=== PATIENT | female | born 1965 | race Caucasian/White ===

== ENCOUNTER → 2017-05-18 08:30 | Outpatient (CLI) | payer OTHER, SELFPAY ==
[2017-05-18 10:43] LABS: ALB/GLOB Ratio 0.7 RATIO (0.9-2.4); AST(SGOT) 33 U/L (15-37); Alanine Aminotransfer ALT/SGPT 56 U/L (13-56); Albumin, Serum 3.4 g/dL (3.2-5.0); Alkaline Phosphatase 91 U/L (45-117); Anion Gap 9 (5-15); BUN 11 mg/dL (7-18); BUN/Creat Ratio 19.4 RATIO (10-20); Calcium,Total 8.5 mg/dL (8.5-10.1); Chloride 101 mmol/L (98-107); Cholesterol 212 mg/dL (200); Creatinine, Serum 0.57 mg/dL (0.55-1.02); EST Glomerular Filtration Rate 118 mL/min (>60); Est Glom Filt Rate - Afr Amer 143 mL/min (>60); Globulin 4.7 g/dL (2.2-4.2); Glucose 149 mg/dL (74-106); High Density Lipoprotein 50 mg/dL; Potassium 3.7 mmol/L (3.5-5.1); Protein, Total 8.1 g/dL (6.4-8.2); Sodium Level 137 mmol/L (136-145); Triglycerides 105 mg/dL; Very Low Density Lipoprotein 21 mg/dL (5-40)
== END ==
PROVIDERS: Family Provider Family Medicine; PCP Family Medicine; Visit Provider Family Medicine
DX: E11.9 Type 2 diabetes mellitus without complications (principal); Z13.21 Encounter for screening for nutritional disorder
CPT/HCPCS: 36415; 80053; 80061; 82306; 84443

== ENCOUNTER 2017-05-20 17:41 | Emergency (ER) | payer OTHER, SELFPAY ==
[2017-05-20 17:41] VITALS: BP 205/98; PULSE 86; RESP 24; TEMP 36.9; O2SAT 100; BMI 41.4
--- NOTE | 2017-05-20 18:09 | CT_ITS ---
STUDY: CT ABDOMEN AND PELVIS WITHOUT CONTRAST REASON FOR EXAM: Female, 51 years old. Left flank pain RADIATION DOSAGE (If Supplied By Facility): CTDIvol = ( 21.85 ) mGy, DLP = ( 1124.68 ) mGycm TECHNIQUE: Transaxial images were obtained from the dome of the diaphragm to the symphysis pubis without oral contrast, and without intravenous contrast. Sagittal and coronal images were reconstructed. Individualized dose optimization techniques were used for this CT. COMPARISON: 617 FINDINGS: The visualized lung bases are clear. The visualized portions of the heart and pericardium are within normal limits. Evaluation of the abdominal viscera is limited in the absence of intravenous contrast. The patient is status post cholecystectomy. The liver is low in density, consistent with fatty infiltration. The spleen is normal in size. The pancreas demonstrates an unremarkable unenhanced appearance. The adrenal glands are within normal limits. There are no urinary stones. There is no right hydronephrosis. There is mild left hydroureteronephrosis with no cause identified on this study. Normal visualized stomach. There is no bowel obstruction or inflammation. There is a large amount of stool in the colon, consistent with constipation. The appendix is not visualized, but there are no findings to suggest acute appendicitis. The aorta is normal in caliber. There is no abdominal or pelvic free air, free fluid, fluid collection or lymphadenopathy. There are no destructive osseous lesions. CT/Abdomen/Pelvis without Cont IMPRESSION: Mild left hydroureteronephrosis with no cause identified on this study. This may be due to a recently passed stone or may be due to infection. Clinical correlation is recommended. No bowel obstruction or inflammation. Constipation. Fatty liver. Electronically Signed: Ivan Mullins, at 19:42 EST Tel , Service support ,
--- NOTE | 2017-05-20 18:14 | ED.DCSUM_ITS ---
- ER Visit Summary Date of Service: 05/20/17 Chief Complaint: Flank pain History of Present Illness: The patient is a 51 F with left flank pain that woke her up at 1 AM this morning. Pain was persistent until about 4 a.m. She has been having intermittent waxing and waning pain throughout the day. She did have some nausea and vomiting this morning when the pain was very severe. She denies dysuria. Patient has a history of asthma, diabetes, hypertension, pancreatitis, fibromyalgia. Cholecystectomy was performed years ago. She also had a hernia repair. Physical Examination: Vital signs are significant for blood pressure of 205/98, otherwise unremarkable. Head neck examination is normal. Heart is regular rate and rhythm. Lung sounds are clear. Abdomen is soft with upper abdominal tenderness. Is no guarding or rebound. Hypoactive bowel sounds are noted throughout. Back examination does reveal left CVA tenderness. Test Results: CBC is unremarkable. Chemistry studies reveal potassium of 3.4 glucose of 188. Urinalysis does show 250 of blood on macroscopic examination. No evidence of infection. CT flank reveals mild left hydroureteronephrosis with no cause identified on the scan. This may be due to recently passed stone or to infection. No evidence of bowel obstruction. Emergency Department Course and Treatment: Patient was given morphine, Toradol, Zofran, and IV fluids. On repeat evaluation she is resting comfortably and is improved. Patient has hydrocodone at home that she will take if pain worsens. I suspect she may have some remaining spasm, but pain should be significantly improved over the next 24 hours. Treatment Plan: [] Disposition: Discharge Impression: Left flank pain with recently passed kidney stone This note was generated with [employer] dictation software. It may contain incorrect words, spelling, and punctuation that were not noted in review of the chart prior to signing ED Disposition - Plan for ED Patient: Chief Complaint: Flank Pain Referrals: Presley Gonzales MD [Primary Care Provider] -
[2017-05-20 18:20] LABS: Absolute Lymphocyte Count 4.14 X10^3/ul (0.83-4.51); Absolute Neutrophil Count 5.9 X10^3/uL (2.0-7.7); Basophil# 0.04 X10^3/uL; Basophil% 0.4 % (0-1); Eosinophil# 0.24 X10^3/uL; Eosinophils% 2.2 % (0-5); Hematocrit 46.7 % (37-47); Hemoglobin 14.9 g/dl (12.0-15.0); Lymphocyte # 4.14 X10^3/ul (4.0); Lymphocyte % 38.1 % (19-41); Mean Corp Hgb Conc 31.9 g/gl (32-36); Mean Corpuscular Hgb 25.4 pg (27.0-32.0); Mean Corpuscular Volume 79.7 fL (81-99); Mean Platelet Vol. 9.7 fl (6.2-12.0); Monocyte# 0.53 X10^3/uL; Monocyte% 4.9 % (0-10); Neutrophil % 54.2 % (47-70); POSITIVE COUNT NO; POSITIVE DIFFERENTIAL NO; POSITIVE MORPHOLOGY NO; Platelet Count 313 K/mm3 (150-450); RBC Distribution Width CV 14.5 % (11.6-14.6); Red Blood Count 5.86 M/mm3 (4.2-5.4); White Blood Count 10.9 K/mm3 (4.4-11.0)
[2017-05-20] MEDS: Ondansetron 4 MG/2 ML Vial IV (18:24)
[2017-05-20] MEDS: Ketorolac 30 MG/ML Syringe IV (18:24)
[2017-05-20] MEDS: 0.9% Normal Saline 1,000 ML 250 ML IV (18:24)
[2017-05-20 18:44] LABS: Bacteria 0 SEEN /hpf (None Seen); Mucous, Urine 0 SEEN /hpf (<or=2+)
[2017-05-20 18:52] LABS: Color, Urine Yellow (Yellow); Glucose, Dipstick 50 mg/dl (Normal); Ketone-Dipstick Negative (Negative); Leukocyte Esterase-Dipstick Negative /ul (Negative); Nitrite-Dipstick Negative (Negative); Occult Blood-Urine 250 /ul (Negative); Protein-Dipstick Negative (Negative); Urine Bilirubin Dipstick Negative (Negative); Urine Clarity Sl. Cloudy (Clear); Urine Urobilinogen Normal (Normal)
[2017-05-20 19:03] LABS: Squamous Epithelial Cells - UA 0-5 SEEN /hpf (5-10)
[2017-05-20 19:04] LABS: Red Blood Cells-Urine 0-5 SEEN /hpf (0-5); White Blood Cells 0-5 SEEN /hpf (0-5)
[2017-05-20 19:05] LABS: Calcium Oxalate Crystals Ur RARE /hpf (<or=2+)
[2017-05-20 19:19] LABS: Anion Gap 8 (5-15); BUN 10 mg/dL (7-18); BUN/Creat Ratio 12.3 RATIO (10-20); Calcium,Total 9.3 mg/dL (8.5-10.1); Chloride 101 mmol/L (98-107); Creatinine, Serum 0.81 mg/dL (0.55-1.02); EST Glomerular Filtration Rate 78 mL/min (>60); Est Glom Filt Rate - Afr Amer 94 mL/min (>60); Estimated Creatinine Clearance 66.44 ml/min; Glucose 188 mg/dL (74-106); Potassium 3.4 mmol/L (3.5-5.1); Sodium Level 138 mmol/L (136-145)
--- NOTE | 2017-05-20 19:54 | ED.DEP ---
ED Disposition - Plan for ED Patient: Disposition: Home or Assisted Living Chief Complaint: Flank Pain Instructions: ED Stone Renal Passed Referrals: Presley Gonzales MD [Primary Care Provider] - As Needed
[2017-05-20 20:02] VITALS: BP 155/70; PULSE 85; RESP 14; O2SAT 99
== END 2017-05-20 20:03 | disposition home or self-care (01) ==
PROVIDERS: Emergency Provider Emergency Medicine; Family Provider Family Medicine; PCP Family Medicine
DX: R10.9 Unspecified abdominal pain (principal); N13.30 Unspecified hydronephrosis; E11.9 Type 2 diabetes mellitus without complications; I10 Essential (primary) hypertension; J45.909 Unspecified asthma, uncomplicated; M79.7 Fibromyalgia; E66.9 Obesity, unspecified; Z79.84 Long term (current) use of oral hypoglycemic drugs; Z79.899 Other long term (current) drug therapy; Z87.19 Personal history of other diseases of the digestive system; Z90.49 Acquired absence of other specified parts of digestive tract
CPT/HCPCS: 74176; 80048; 81001; 85025; 96361; 96374; 96375; 99283; J7030; A4216; J2405

== ENCOUNTER → 2017-09-29 16:11 | Outpatient (CLI) | payer OTHER, SELFPAY | PROVIDERS: Visit Provider Otolaryngology | DX: J32.9 Chronic sinusitis, unspecified (principal) | CPT/HCPCS: 87070; 87077; 87186; 87205 ==

== ENCOUNTER → 2017-11-16 08:45 | Outpatient (CLI) | payer OTHER, SELFPAY | PROVIDERS: Family Provider Family Medicine; PCP Family Medicine; Visit Provider Family Medicine | DX: M79.643 Pain in unspecified hand (principal); E66.9 Obesity, unspecified | CPT/HCPCS: 73130 ==

== ENCOUNTER 2017-12-11 08:52 | Outpatient (RCR) | payer OTHER, SELFPAY | END 2017-12-11 23:59 | LOC: NS 08:52 | PROVIDERS: Family Provider Family Medicine; PCP Family Medicine; Visit Provider Family Medicine | DX: E66.01 Morbid (severe) obesity due to excess calories (principal); Z68.41 Body mass index [BMI] 40.0-44.9, adult; Z71.3 Dietary counseling and surveillance | CPT/HCPCS: 97802 ==

== ENCOUNTER → 2018-04-19 14:50 | Outpatient (CLI) | payer OTHER, SELFPAY ==
[2018-04-19 14:50] VITALS: BMI 40.3
[2018-04-19 17:40] LABS: Hematocrit 45.3 % (37-47); Hemoglobin 14.6 g/dl (12.0-15.0); Mean Corp Hgb Conc 32.2 g/gl (32-36); Mean Corpuscular Hgb 25.3 pg (27.0-32.0); Mean Corpuscular Volume 78.6 fL (81-99); Mean Platelet Vol. 10.7 fl (6.2-12.0); Platelet Count 338 K/mm3 (150-450); RBC Distribution Width CV 15.4 % (11.6-14.6); Red Blood Count 5.76 M/mm3 (4.2-5.4); White Blood Count 8.1 K/mm3 (4.4-11.0)
[2018-04-19 17:44] LABS: Scan Indicated on CBC? Y/N NO
[2018-04-19 17:57] LABS: Anion Gap 9 (5-15); BUN 11 mg/dL (7-18); BUN/Creat Ratio 13.7 RATIO (10-20); Calcium,Total 9.1 mg/dL (8.5-10.1); Chloride 101 mmol/L (98-107); EST Glomerular Filtration Rate 79 mL/min (>60); Est Glom Filt Rate - Afr Amer 95 mL/min (>60); Glucose 235 mg/dL (74-106); Magnesium 2.3 mg/dL (1.6-2.6); Potassium 4.1 mmol/L (3.5-5.1); Sodium Level 138 mmol/L (136-145); Thyroid Stim Hormone (TSH) 0.89 uIU/mL (0.358-3.74)
[2018-04-19 17:59] LABS: Vitamin D,25 Hydroxy 18.9 ng/mL (29.95-100.01)
== END ==
PROVIDERS: Family Provider Family Medicine; PCP Family Medicine; Visit Provider Family Medicine
DX: R00.2 Palpitations (principal); E55.9 Vitamin D deficiency, unspecified
CPT/HCPCS: 36415; 80048; 82306; 83735; 84443; 85027

== ENCOUNTER → 2018-06-05 15:41 | Outpatient (CLI) | payer OTHER, SELFPAY ==
[2018-04-19 14:50] VITALS: BMI 40.3
[2018-06-08 08:55] LABS: HPV Reflexed? NOT INDICATED
== END ==
PROVIDERS: Family Provider Family Medicine; PCP Family Medicine; Referring Provider Nurse Practitioner Adult Health; Visit Provider Nurse Practitioner Adult Health
DX: Z01.419 Encounter for gynecological examination (general) (routine) without abnormal findings (principal)
CPT/HCPCS: 88175; G0145

== ENCOUNTER → 2018-07-02 07:30 | Outpatient (CLI) | payer OTHER, SELFPAY ==
[2018-04-19 14:50] VITALS: BMI 40.3
--- NOTE | 2018-07-02 07:33 | BI_ITS ---
MAMMOGRAPHY - BILATERAL SCREENING REASON FOR EXAM: Female, 53 years old. Routine annual screening examination. PERTINENT HISTORY: Mother with breast cancer. TECHNIQUE: Digital bilateral breast kya (3D mammographic acquisition) in the CC and MLO projections. 2-D mediolateral oblique (MLO) and craniocaudad (CC) views of both breasts were obtained. CAD: Full Field Digital Mammography with Computer Added Detection was performed. COMPARISON: Comparison is made with prior study dated October 05, 2012 and October 05, 2011. FINDINGS: Breast Composition: There are scattered areas of fibroglandular density. There are no dominant masses or suspicious calcifications. Stable small bilateral axillary lymph nodes. No other significant abnormalities are identified. There has been no significant change since the prior study. BI/SCREENING MAMM (CAD), BILAT IMPRESSION: Stable bilateral screening mammogram. Yearly follow-up mammogram recommended. (A) ASSESSMENT CATEGORY: BIRADS Category 2: Benign. A letter regarding these results will be sent to the patient by the facility within 30 days. Approximately 10% of breast cancers are not detected by mammography. A normal mammogram should not delay biopsy of a clinically suspicious abnormality. [id number] Electronically Signed: Rik Shaw, at 10:56 EDT , Service support ,
== END ==
PROVIDERS: Family Provider Family Medicine; PCP Family Medicine; Referring Provider Family Medicine; Visit Provider Family Medicine
DX: Z12.31 Encounter for screening mammogram for malignant neoplasm of breast (principal)
CPT/HCPCS: 77063; 77067

== ENCOUNTER → 2018-07-10 14:00 | Outpatient (CLI) | payer OTHER, SELFPAY ==
[2018-04-19 14:50] VITALS: BMI 40.3
--- NOTE | 2018-07-10 14:03 | ECHOD_ITS ---
Reason For Study: MURMUR Procedure This was a 2D Doppler, Color Flow transthoracic echocardiogram. The study was technically difficult. Exam performed in department. Left Ventricle Normal LV size. Left ventricular systolic function is normal. The estimated ejection fraction is 60 %. No evidence for diastolic dysfunction. No regional wall motion abnormalities noted. Right Ventricle Normal RV size. Normal systolic function. Atria The left atrium is mildly enlarged. Normal right atrium. No doppler evidence for ASD. Mitral Valve There is no mitral annular calcification. Normal mitral valve. Mild (1+) mitral valve insufficiency. Tricuspid Valve Normal tricuspid valve. Mild tricuspid valve insufficiency. Right ventricular systolic pressure estimated to be 25 mmHg. Aortic Valve Trisinus/trileaflet aortic valve. Normal aortic valve. Pulmonic Valve The pulmonic valve is not well visualized. Great Vessels Normal sized aortic root. Pericardium/Pleural No pericardial effusion. MMode/2D Measurements & Calculations LVIDd: 4.2 cm IVSd: 1.0 cm Ao root diam: 3.4 cm LVIDs: 2.9 cm LVPWd: 1.0 cm RVDd: 3.7 cm FS: 30.3 % LAV(MOD-sp2): 48.0 ml LA dimension(2D): 3.2 cm Time Measurements MV dec time: 0.16 sec Doppler Measurements & Calculations MV E max jayy: 104.9 cm/sec Lat Peak E' Jayy: 9.7 cm/sec Med Peak E' Jayy: 11.1 cm/sec MV A max jayy: 96.8 cm/sec E/E' lat: 10.8 E/E' med: 9.4 MV E/A: 1.1 Ao V2 max: 142.8 cm/sec LV V1 max: 121.7 cm/sec TR max jayy: 233.5 cm/sec Ao max P.2 mmHg LV V1 max P.9 mmHg TR max P.8 mmHg Interpretation Summary The study was technically difficult. Left ventricular systolic function is normal. The estimated ejection fraction is 60 %. The left atrium is mildly enlarged. Mild (1+) mitral valve insufficiency. Mild tricuspid valve insufficiency. Right ventricular systolic pressure estimated to be 25 mmHg. No evidence for diastolic dysfunction. Ordering Physician: Jaime Aldana Referring Physician: NORMA BEARD Performed By: Ivonne Chahal, RDCS, RVT
== END ==
PROVIDERS: Family Provider Family Medicine; PCP Family Medicine; Referring Provider Family Medicine; Visit Provider Family Medicine
DX: R01.1 Cardiac murmur, unspecified (principal)
CPT/HCPCS: 93306

== ENCOUNTER → 2018-10-05 07:31 | Outpatient (CLI) | payer OTHER, SELFPAY ==
[2018-04-19 14:50] VITALS: BMI 40.3
[2018-10-05 11:04] LABS: ALB/GLOB Ratio 0.8 RATIO (0.9-2.4); AST(SGOT) 17 U/L (15-37); Alanine Aminotransfer ALT/SGPT 27 U/L (13-56); Albumin, Serum 3.4 g/dL (3.2-5.0); Alkaline Phosphatase 81 U/L (45-117); Anion Gap 6 (5-15); BUN 10 mg/dL (7-18); BUN/Creat Ratio 12.7 RATIO (10-20); Chloride 103 mmol/L (98-107); Cholesterol 244 mg/dL (200); Creatinine, Serum 0.79 mg/dL (0.55-1.02); EST Glomerular Filtration Rate 80 mL/min (>60); Est Glom Filt Rate - Afr Amer 97 mL/min (>60); Globulin 4.3 g/dL (2.2-4.2); Glucose 119 mg/dL (74-106); High Density Lipoprotein 54 mg/dL; Potassium 4.2 mmol/L (3.5-5.1); Protein, Total 7.7 g/dL (6.4-8.2); Sodium Level 137 mmol/L (136-145); Triglycerides 120 mg/dL; Very Low Density Lipoprotein 24 mg/dL (5-40)
[2018-10-05 11:12] LABS: Vitamin D,25 Hydroxy 42.4 ng/mL (29.95-100.01)
== END ==
PROVIDERS: Family Provider Family Medicine; PCP Family Medicine; Referring Provider Family Medicine; Visit Provider Family Medicine
DX: E11.9 Type 2 diabetes mellitus without complications (principal); E55.9 Vitamin D deficiency, unspecified
CPT/HCPCS: 36415; 80053; 80061; 82306

== ENCOUNTER 2019-01-22 13:32 | Emergency (ER) | payer OTHER, SELFPAY ==
[2018-04-19 14:50] VITALS: BMI 40.3
[2019-01-22 13:33] VITALS: BP 142/78; PULSE 88; RESP 16; TEMP 36.7; O2SAT 97; BMI 46.0
--- NOTE | 2019-01-22 14:52 | CT_ITS ---
STUDY: CT ABDOMEN AND PELVIS WITHOUT CONTRAST REASON FOR EXAM: Female, 53 years old. Right lower quadrant pain. RADIATION DOSAGE (If Supplied By Facility): CTDIvol = ( 23.77 ) mGy, DLP = ( 1258.84 ) mGycm TECHNIQUE: Transaxial images were obtained from the dome of the diaphragm to the symphysis pubis without oral contrast, and without intravenous contrast. Sagittal and coronal images were reconstructed. Individualized dose optimization techniques were used for this CT. COMPARISON: Comparison is made with prior examination of May 20, 2017. FINDINGS: The visualized lung bases are unremarkable. The visualized portions of the heart are within normal limits. There is decreased attenuation of the liver consistent with steatosis. The patient is status post cholecystectomy. Normal spleen. Normal pancreas. Normal bilateral adrenal glands. Normal right kidney. Normal left kidney. Normal visualized stomach. Normal small intestine. Normal colon. The appendix is visualized and appears normal. There is scattered atherosclerotic calcification of the abdominal aorta, without a demonstrated aneurysm. Normal inferior vena cava. Normal retroperitoneum. Normal urinary bladder. There is evidence of prior ventral hernia repair with a mesh. There is thinning of the anterior abdominal wall musculature. Disc space narrowing and disc degeneration at the L5-S1 level. CT/Abdomen/Pelvis without Cont IMPRESSION: Fatty infiltration of the liver. Prior cholecystectomy. Electronically Signed: Rik Shaw, at 16:01 EDT , Service support ,
--- NOTE | 2019-01-22 14:52 | ED.VIS.GEN ---
History of Present Illness Chief Complaint: Abd Pain Detail of Chief Complaint: Flank pain and dysuria Informant: Patient Onset: - January 18 with dysuria at the end of urination. Intermittent discomfort Monday and Monday. Pain is now constant and located in the right flank right abdomen. Context: Sudden Onset Timing: Intermittent Quality: Colicky Location: Right flank and abdomen Current Severity: Mild Maximum Severity: Severe Worsened by: Nothing Relieved by: Nothing Associated Symptoms: Dysuria and urgency Narrative: Patient is a middle-age woman with history of type 2 diabetes x18 years, hypertension and borderline hypercholesterolemia who presents with right flank pain that is colicky in nature and constant since this morning. She reports urgency and dysuria. Onset of dysuria Monday. Monday and Monday she had intermittent pain. Pain is now constant. She has remote history of ureterolithiasis. Patient's diabetes is not well controlled with her last A1c level being 7.8. She denies fever, chills night sweats. She denies HEENT, cardiac, respiratory symptoms. She does report nausea. She denies vomiting diarrhea. There is no history of trauma. She denies rash or skin lesions. Prior similar symptoms: Yes - Years ago Recent Illness/Hospitalization: No - Past Medical History (1) History of type 2 diabetes mellitus Status: Acute (2) history of renal and ureterolithiasis Status: Acute (3) Thoracic neuritis Status: Acute Past Medical History - Allergies and Home Meds Allergies/Adverse Reactions: Allergies promethazine [From Phenergan] Allergy (Verified 01/22/19 13:39) Other MUSCLE SPASM sulfamethoxazole [From Bactrim] Allergy (Verified 01/22/19 13:39) Vomiting trimethoprim [From Bactrim] Allergy (Verified 01/22/19 13:39) Vomiting Primary Care Physician: Presley Gonzales MD [Primary Care Provider] - Prior records reviewed: Yes Surgical History: cholecystectomy Lives: Spouse/ Significant Other Smoking Status: Never smoker Alcohol: None Drugs: None Review of Systems General: Denies: Chills, Fever, Sweats Eyes: Reports: Blurred Vision - bilaterally. Denies: Visual changes - bilaterally, Diplopia ENT: Denies: Rhinorrhea, Sore throat Cardiovascular: Denies: Chest pain, Palpitations Respiratory: Denies: Dyspnea, Cough, Dyspnea on exertion Gastrointestinal: Reports: Abdominal pain, Nausea. Denies: Vomiting, Diarrhea, Constipation, Melena, Hematochezia, -, - Genitourinary: Reports: Dysuria, Frequency Musculoskeletal: Reports: Back pain. Denies: Myalgias, Arthralgias, Neck pain, Swelling, Extremity Pain Skin: Denies: Rash, Wounds Neurological: Denies: Headache, Weakness, Numbness Physical Exam Vital Signs/Narrative: Vital Signs Temp Pulse Resp BP Pulse Ox 01/22/19 13:33 98.1 F 88 16 142/78 H 97 Inital Vital Signs reviewed: Yes General: Well nourished, Well developed, No Acute Distress Head: Normocephalic, Atraumatic Eyes: Perrl, EOMI ENT: Moist mucous membranes, No rhinorrhea Neck: Supple, Nontender Cardiovascular: Regular rate, Regular rhythm, No murmurs Respiratory: No distress, CTA bilaterally, Chest nontender Abdomen: Soft, Nontender, Nondistended, Normal bowel sounds Back: Nontender, Normal Inspection, CVA tenderness - Right side Extremities: Nontender, No edema Skin: Normal color, No rash Neurological: Alert, Oriented x3, Cranial nerves II-XII grossly intact, Normal Strength, Normal Sensation Psychological: Normal affect, Normal Mood Diagnostic/Tx/Re-eval Impressions Abdomen/Pelvis CT 01/22/19 14:52 IMPRESSION: Fatty infiltration of the liver. Prior cholecystectomy. Electronically Signed: Rik Shaw, at 16:01 EDT , Service support , 01/22/19 14:52 Abdomen/Pelvis without Cont [CT] Stat Laboratory Results 01/22/19 01/22/19 01/22/19 15:36 15:36 16: WBC 10.9 RBC 5.62 H Hgb 14.1 Hct 45.0 MCV 80.1 L MCH 25.1 L MCHC 31.3 L RDW Std Deviation 44.1 H RDW Coeff of Tram 15.5 H Plt Count 344 MPV 9.7 Immature Gran % (Auto) 0.400 Neut % (Auto) 68.8 Lymph % (Auto) 23.1 [place] % (Auto) 5.9 Eos % (Auto) 1.2 Baso % (Auto) 0.6 Absolute Neuts (auto) 7.5 Absolute Lymphs (auto) 2.51 Nucleated RBC % 0 Sodium 139 Potassium 3.8 Chloride 102 Carbon Dioxide 30.0 Anion Gap 7 BUN 16 Creatinine 0.75 Estim Creat Clear Calc 67.03 Est GFR (MDRD) Af Amer 103 Est GFR (MDRD) Non-Af 85 BUN/Creatinine Ratio 21.2 H Glucose 85 Calcium 9.1 Urine Color Yellow Urine Clarity Cloudy Urine pH 6.5 Ur Specific [place] 1.020 Urine Protein 100 H Urine Glucose (UA) Normal Urine Ketones 15 H Urine Occult Blood 250 H Urine Nitrite Positive H Urine Bilirubin Negative Urine Urobilinogen 1 H Ur Leukocyte Esterase 100 H Urine RBC 25-50 SEEN Urine WBC 25-50 SEEN Ur Squamous Epith Cells 0-5 SEEN Urine Bacteria 4+ Urine Mucus 0 SEEN POC Glucose 01/22/19 16:58 WBC RBC Hgb Hct MCV MCH MCHC RDW Std Deviation RDW Coeff of Tram Plt Count MPV Immature Gran % (Auto) Neut % (Auto) Lymph % (Auto) [place] % (Auto) Eos % (Auto) Baso % (Auto) Absolute Neuts (auto) Absolute Lymphs (auto) Nucleated RBC % Sodium Potassium Chloride Carbon Dioxide Anion Gap BUN Creatinine Estim Creat Clear Calc Est GFR (MDRD) Af Amer Est GFR (MDRD) Non-Af BUN/Creatinine Ratio Glucose Calcium Urine Color Urine Clarity Urine pH Ur Specific [place] Urine Protein Urine Glucose (UA) Urine Ketones Urine Occult Blood Urine Nitrite Urine Bilirubin Urine Urobilinogen Ur Leukocyte Esterase Urine RBC Urine WBC Ur Squamous Epith Cells Urine Bacteria Urine Mucus POC Glucose 72 There is no evidence of ureteral stone. Laboratory results are consistent with infection. Clinically patient has pyelonephritis. Since patient has allergy to sulfa we will treat with ciprofloxacin. - Medical Decision Making Ureterolithiasis with obstructing stone and infection. Because patient is diabetic not well controlled a basic metabolic panel was obtained to assess renal function as well as glucose and anion gap. CBC to assess white count. UA was obtained to rule out/evaluate for urinary tract infection. CT of the abdomen pelvis without contrast was ordered to evaluate for obstructing ureterolithiasis. 7-day course of ciprofloxacin 500 mg twice daily to treat pyelonephritis. ED Disposition - Plan for ED Patient: Disposition: Home or Assisted Living Diagnosis: Acute pyelonephritis Instructions: PYELONEPHRITIS, Female (Adult) Prescriptions: Ciprofloxacin [Cipro] 500 mg PO BID #14 tab Prescription Printed Referrals: Presley Gonzales MD [Primary Care Provider] - 3-5 Days
[2019-01-22 15:33] VITALS: BP 142/78; PULSE 88; RESP 16; TEMP 36.7; O2SAT 97
[2019-01-22] MEDS: 0.9% Normal Saline 1,000 ML 250 ML IV (15:36)
[2019-01-22 15:50] LABS: Absolute Lymphocyte Count 2.51 X10^3/uL (0.83-4.51); Absolute Neutrophil Count 7.5 X10^3/uL (2.0-7.7); Basophil# 0.06 X10^3/uL; Basophil% 0.6 % (0-1); Eosinophil# 0.13 X10^3/uL; Eosinophils% 1.2 % (0-5); Hemoglobin 14.1 g/dL (12.0-15.0); Lymphocyte # 2.51 X10^3/ul (4.0); Lymphocyte % 23.1 % (19-41); Mean Corp Hgb Conc 31.3 g/dL (32-36); Mean Corpuscular Hgb 25.1 pg (27.0-32.0); Mean Corpuscular Volume 80.1 fL (81-99); Mean Platelet Vol. 9.7 fl (6.2-12.0); Monocyte# 0.64 X10^3/uL; Monocyte% 5.9 % (0-10); NRBC Flagged by Analyzer 0 % (0-5); Neutrophil # 7.49 X10^3/uL (2.7-7.7); Neutrophil % 68.8 % (47-70); Platelet Count 344 K/mm3 (150-450); RBC Distribution Width CV 15.5 % (11.6-14.6); RBC Distribution Width SD 44.1 fl (35.1-43.9); Red Blood Count 5.62 M/mm3 (4.2-5.4); White Blood Count 10.9 K/mm3 (4.4-11.0)
[2019-01-22 16:01] LABS: Anion Gap 7 (5-15); BUN 16 mg/dL (7-18); BUN/Creat Ratio 21.2 RATIO (10-20); Calcium,Total 9.1 mg/dL (8.5-10.1); Chloride 102 mmol/L (98-107); Creatinine, Serum 0.75 mg/dL (0.55-1.02); EST Glomerular Filtration Rate 85 mL/min (>60); Est Glom Filt Rate - Afr Amer 103 mL/min (>60); Estimated Creatinine Clearance 67.03 ml/min; Glucose 85 mg/dL (74-106); Potassium 3.8 mmol/L (3.5-5.1); Sodium Level 139 mmol/L (136-145)
[2019-01-22 16:26] LABS: Mucous, Urine 0 SEEN /hpf (<or=2+)
[2019-01-22 16:37] LABS: Color, Urine Yellow (Yellow); Glucose, Dipstick Normal (Normal); Ketone-Dipstick 15 mg/dl (Negative); Leukocyte Esterase-Dipstick 100 /ul (Negative); Nitrite-Dipstick Positive (Negative); Occult Blood-Urine 250 /ul (Negative); Protein-Dipstick 100 mg/dl (Negative); Urine Bilirubin Dipstick Negative (Negative); Urine Clarity Cloudy (Clear); Urine Urobilinogen 1 mg/dl (Normal); Urine pH 6.5 (5.0 - 8.0)
[2019-01-22 16:56] LABS: Bacteria 4+ /hpf (None Seen); Squamous Epithelial Cells - UA 0-5 SEEN /hpf (5-10)
[2019-01-22 16:57] LABS: Red Blood Cells-Urine 25-50 SEEN /hpf (0-5); White Blood Cells 25-50 SEEN /hpf (0-5)
[2019-01-22 17:01] LABS: Bedside Glucose 72 mg/dL (70-110)
[2019-01-22] MEDS: Ceftriaxone 1 GM/50 ML BAG IV (17:25)
[2019-01-22 17:52] VITALS: BP 144/75; PULSE 79; RESP 16; O2SAT 98
== END 2019-01-22 18:05 | disposition home or self-care (01) ==
PROVIDERS: Emergency Provider Emergency Medicine; Family Provider Family Medicine; PCP Family Medicine
DX: N10 Acute pyelonephritis (principal); E11.9 Type 2 diabetes mellitus without complications; I10 Essential (primary) hypertension; Z87.442 Personal history of urinary calculi
CPT/HCPCS: 74176; 80048; 81001; 82962; 85025; 87086; 87088; 87186; 96361; 96365; 99285; J7030; J7050; A4216; J2405

== ENCOUNTER → 2019-06-11 09:38 | Outpatient (CLI) | payer OTHER, SELFPAY ==
[2019-06-11 12:42] LABS: ALB/GLOB Ratio 0.7 RATIO (0.9-2.4); AST(SGOT) 19 U/L (15-37); Alanine Aminotransfer ALT/SGPT 25 U/L (13-56); Albumin, Serum 3.2 g/dL (3.2-5.0); Alkaline Phosphatase 80 U/L (45-117); Anion Gap 6 (5-15); BUN 12 mg/dL (7-18); BUN/Creat Ratio 17.3 RATIO (10-20); Calcium,Total 8.6 mg/dL (8.5-10.1); Chloride 100 mmol/L (98-107); Cholesterol 207 mg/dL (200); Creatinine, Serum 0.69 mg/dL (0.55-1.02); EST Glomerular Filtration Rate 93 mL/min (>60); Est Glom Filt Rate - Afr Amer 113 mL/min (>60); Globulin 4.9 g/dL (2.2-4.2); Glucose 144 mg/dL (74-106); High Density Lipoprotein 48 mg/dL; Potassium 3.6 mmol/L (3.5-5.1); Protein, Total 8.1 g/dL (6.4-8.2); Sodium Level 134 mmol/L (136-145); Triglycerides 104 mg/dL; Very Low Density Lipoprotein 21 mg/dL (5-40)
== END ==
PROVIDERS: PCP Family Medicine; Referring Provider Family Medicine; Visit Provider Family Medicine
DX: E11.9 Type 2 diabetes mellitus without complications (principal); E55.9 Vitamin D deficiency, unspecified
CPT/HCPCS: 36415; 80053; 80061; 82306

== ENCOUNTER → 2020-03-10 11:06 | Outpatient (CLI) | payer OTHER, SELFPAY ==
[2020-03-10 13:10] LABS: ALB/GLOB Ratio 0.7 RATIO (0.9-2.4); AST(SGOT) 20 U/L (15-37); Alanine Aminotransfer ALT/SGPT 32 U/L (13-56); Albumin, Serum 3.3 g/dL (3.2-5.0); Alkaline Phosphatase 80 U/L (45-117); Anion Gap 6 (5-15); BUN 13 mg/dL (7-18); BUN/Creat Ratio 18.7 RATIO (10-20); Chloride 104 mmol/L (98-107); Creatinine, Serum 0.69 mg/dL (0.55-1.02); EST Glomerular Filtration Rate 93 mL/min (>60); Est Glom Filt Rate - Afr Amer 112 mL/min (>60); Globulin 4.6 g/dL (2.2-4.2); Glucose 113 mg/dL (74-106); Potassium 4.2 mmol/L (3.5-5.1); Protein, Total 7.9 g/dL (6.4-8.2); Sodium Level 139 mmol/L (136-145); Thyroid Stim Hormone (TSH) 0.81 uIU/mL (0.358-3.74)
== END ==
PROVIDERS: PCP Family Medicine; Referring Provider Family Medicine; Visit Provider Family Medicine
DX: E11.9 Type 2 diabetes mellitus without complications (principal); E55.9 Vitamin D deficiency, unspecified
CPT/HCPCS: 36415; 80053; 82306; 84443

== ENCOUNTER 2020-04-28 17:31 | Emergency (ER) | payer OTHER, SELFPAY ==
[2020-04-28 17:34] VITALS: BP 154/94; PULSE 102; RESP 17; TEMP 36.7; O2SAT 98; BMI 46.5
--- NOTE | 2020-04-28 18:43 | ED.DCSUM_ITS ---
- ER Visit Summary Date of Service: 04/28/20 Chief Complaint: Fever, headache, sore throat History of Present Illness: The patient is a [address] Mac. She reports that 2:00 this morning she woke with a headache. Is gradually gotten worse. She describes it as a clamp around her head. Is 10 of 10 worst 910 currently. Is worsened by touching her head or noise. She taken Tylenol with minimal relief. She does report she had similar symptoms previously. Patient also reports she had a temperature to 100.1 degrees and chills. She is a sore throat is 4-10 severity. She has bilateral ear pain that is 6 out of 10 severity. She denies any cough. She denies abdominal pain. She is had nausea without vomiting. No diarrhea. She complains of generalized weakness. Patient has sick contacts. She does wear a mask. Physical Examination: Vitals: Stable. Afebrile. General: Well-nourished and well-developed. Head: Normocephalic atraumatic. HEENT: Pharyngeal erythema. No tonsillar exudate or enlargement. TMs are normal bilaterally. Neck: Supple, no lymphadenopathy. No JVD. Nontender. Cardiovascular: Regular rate and rhythm. No murmurs. Respiratory: No respiratory distress. Clear to auscultation bilaterally. Abdominal: Soft, nontender, nondistended, normal bowel sounds. No guarding, rebound, or peritoneal signs. Back: Nontender. Extremities: Nontender, no edema. Skin: Normal color, no rash. Neurologic: Alert and oriented ?3. Cranial nerves II through XII are intact. Normal strength and sensation. Psych: Normal affect. Test Results: UA shows 5-10 epithelial cells, ketones, blood, leukocytes. Rapid strep is negative. COVID-19 is negative. Clinical Impression(s) from Imaging Studies Brain CT 04/28/20 20:48 IMPRESSION: Normal unenhanced CT scan of the brain. There is continued concern for acute stroke, MRI is recommended. Electronically Signed: Luis Clements DO at 21:08 EST Tel [phone], Service support , Emergency Department Course and Treatment: Patient had an IV placed. She was given a liter normal saline. She was given Toradol, Benadryl, and Reglan IV. She is resting more comfortably. She continues to complain of a headache. She was given a dose of morphine IV. She refused a lumbar puncture. Treatment Plan: This time the patient will be discharged with symptomatic care. She is instructed to push fluids. Use Tylenol and/or ibuprofen for headache. She is given Zofran for nausea. Follow-up with her primary care physician in 1 to 2 days if not improving. Return to the emergency department for any worsening symptoms. Disposition: To home in improved and stable condition. Impression: 1. Cephalgia. 2. Pharyngitis. This note was generated with [employer] dictation software. It may contain incorrect words, spelling, and punctuation that were not noted in review of the chart prior to signing ED Disposition - Plan for ED Patient: Instructions: ED Headache Unspecified Prescriptions: Ondansetron [Zofran Odt] 4 mg PO Q8H PRN PRN #10 tablet PRN Reason: Nausea Referrals: Presley Gonzales MD [Primary Care Provider] - 1-2 Days if not improving
[2020-04-28 18:45] LABS: Bacteria 0 SEEN /hpf (None Seen); Mucous, Urine 0 SEEN /hpf (<or=2+); Red Blood Cells-Urine 0 SEEN /hpf (0-5)
[2020-04-28 18:46] LABS: Color, Urine Yellow (Yellow); Glucose, Dipstick 50 mg/dl (Normal); Ketone-Dipstick 15 mg/dl (Negative); Leukocyte Esterase-Dipstick 25 /ul (Negative); Nitrite-Dipstick Negative (Negative); Occult Blood-Urine 10 /ul (Negative); Protein-Dipstick 100 mg/dl (Negative); Urine Bilirubin Dipstick Negative (Negative); Urine Clarity Clear (Clear); Urine Urobilinogen Normal (Normal)
[2020-04-28 18:54] LABS: Squamous Epithelial Cells - UA 5-10 SEEN /hpf (5-10); White Blood Cells 0-5 SEEN /hpf (0-5)
[2020-04-28] MEDS: DiphenhydrAMINE 50 MG/ML Syringe IV (19:15)
[2020-04-28] MEDS: Ketorolac 15 MG/ML Vial IV (19:15)
[2020-04-28] MEDS: Metoclopramide 10 MG/2 ML Vial IV (19:15)
[2020-04-28] MEDS: 0.9% Normal Saline 1,000 ML 999 ML IV (19:18)
[2020-04-28] MEDS: Morphine 4 MG/ML Syringe IV (20:41)
--- NOTE | 2020-04-28 20:48 | CT_ITS ---
STUDY: CT BRAIN WITHOUT CONTRAST REASON FOR EXAM: Female, 54 years old. Headache and congestion since 2:00 AM. RADIATION DOSAGE (If Supplied By Facility): CTDIvol = ( 44.99 ) mGy, DLP = ( 829.85 ) mGycm TECHNIQUE: Transaxial CT imaging of the brain was performed without administration of intravenous contrast material. Individualized dose optimization techniques were used for this CT. COMPARISON: No relevant priors. FINDINGS: Normal soft tissue structures. Normal calvarium. Normal size ventricles and extra-axial spaces for the patient''s age. Normal white matter tracts of the cerebral hemispheres. Normal basal ganglia and thalami. Normal brainstem. Normal cerebellum. There is no intracranial hemorrhage. There are no findings of an acute ischemic infarction. Normal visualized paranasal sinuses. CT/Brain/Head without Contrast IMPRESSION: Normal unenhanced CT scan of the brain. There is continued concern for acute stroke, MRI is recommended. Electronically Signed: Luis Clements DO at 21:08 EST Tel [phone], Service support ,
[2020-04-28 21:32] VITALS: BP 144/73; PULSE 81; RESP 16; O2SAT 98
== END 2020-04-28 21:33 | disposition home or self-care (01) ==
LOC: ED 19:24
PROVIDERS: Emergency Provider Emergency Medicine; PCP Family Medicine
DX: R51.9 Headache, unspecified (principal); J02.9 Acute pharyngitis, unspecified; I10 Essential (primary) hypertension; E11.9 Type 2 diabetes mellitus without complications; Z79.84 Long term (current) use of oral hypoglycemic drugs
CPT/HCPCS: 70450; 81001; 87426; 87880; 96361; 96374; 96375; 99282; J7030; A4216

== ENCOUNTER → 2020-06-18 16:20 | Outpatient (CLI) | payer OTHER, SELFPAY ==
[2020-06-18 17:53] LABS: Absolute Lymphocyte Count 2.88 X10^3/uL (0.83-4.51); Absolute Neutrophil Count 5.2 X10^3/uL (2.0-7.7); Basophil# 0.07 X10^3/uL; Basophil% 0.8 % (0-1); Eosinophil# 0.32 X10^3/uL; Eosinophils% 3.5 % (0-5); Hemoglobin 14.9 g/dL (12.0-15.0); Lymphocyte # 2.88 X10^3/ul (4.0); Lymphocyte % 31.6 % (19-41); Mean Corp Hgb Conc 30.4 g/dL (32-36); Mean Corpuscular Hgb 24.5 pg (27.0-32.0); Mean Corpuscular Volume 80.6 fL (81-99); Mean Platelet Vol. 10.3 fl (6.2-12.0); Monocyte# 0.59 X10^3/uL; Monocyte% 6.5 % (0-10); NRBC Flagged by Analyzer 0 % (0-5); Neutrophil # 5.22 X10^3/uL (2.7-7.7); Neutrophil % 57.4 % (47-70); Platelet Count 390 K/mm3 (150-450); RBC Distribution Width CV 15.8 % (11.6-14.6); RBC Distribution Width SD 44.2 fl (35.1-43.9); Red Blood Count 6.08 M/mm3 (4.2-5.4); White Blood Count 9.1 K/mm3 (4.4-11.0)
[2020-06-18 18:35] LABS: ALB/GLOB Ratio 0.7 RATIO (0.9-2.4); AST(SGOT) 18 U/L (15-37); Alanine Aminotransfer ALT/SGPT 33 U/L (13-56); Albumin, Serum 3.4 g/dL (3.2-5.0); Alkaline Phosphatase 84 U/L (45-117); Anion Gap 6 (5-15); BUN 14 mg/dL (7-18); BUN/Creat Ratio 15.9 RATIO (10-20); Calcium,Total 9.2 mg/dL (8.5-10.1); Chloride 101 mmol/L (98-107); Cholesterol 216 mg/dL (200); Creatinine, Serum 0.88 mg/dL (0.55-1.02); EST Glomerular Filtration Rate 70 mL/min (>60); Est Glom Filt Rate - Afr Amer 85 mL/min (>60); Glucose 160 mg/dL (74-106); High Density Lipoprotein 50 mg/dL; Potassium 3.8 mmol/L (3.5-5.1); Protein, Total 8.4 g/dL (6.4-8.2); Sodium Level 136 mmol/L (136-145); Triglycerides 226 mg/dL; Very Low Density Lipoprotein 45 mg/dL (5-40)
[2020-06-18 18:54] LABS: Vitamin D,25 Hydroxy 43.2 ng/mL
== END ==
PROVIDERS: PCP Family Medicine; Referring Provider Family Medicine; Visit Provider Registered Nurse
DX: E11.59 Type 2 diabetes mellitus with other circulatory complications (principal)
CPT/HCPCS: 36415; 80053; 80061; 82306; 85025

== ENCOUNTER 2020-10-12 14:59 | Emergency (ER) | payer OTHER, SELFPAY ==
[2020-10-12 15:00] VITALS: BP 156/80; PULSE 89; RESP 17; TEMP 36.4; O2SAT 90; BMI 47.5
--- NOTE | 2020-10-12 15:05 | ED.RN ---
Called Inés from [employer] [facility] for workers comp claim.
--- NOTE | 2020-10-12 16:19 | RAD_ITS ---
STUDY: X-RAY - LEFT KNEE REASON FOR EXAM: Female, 55 years old. TRIPPED OVER PURSE AT WORK. PAIN LATERAL SIDE OF KNEE TECHNIQUE: 4 view(s) of the knee. COMPARISON: None. FINDINGS: Normal visualized distal femur. Normal visualized proximal tibia and fibula. Normal proximal tibiofibular articulation. There is no demonstrated fracture. There is moderate degenerative arthrosis of the medial femorotibial compartment with moderate joint space narrowing. Normal lateral femorotibial compartment. There is mild degenerative arthrosis of the patellofemoral articulation. There is no demonstrated joint effusion. The soft tissue structures are unremarkable. RAD/Knee 4 or More Views IMPRESSION: Degenerative arthrosis. Electronically Signed: Sarwat Rojas MD at 16:51 EDT , Service support ,
--- NOTE | 2020-10-12 16:32 | EX.ED.DYSGE1 ---
HPI History of Present Illness Chief Complaint: Lower Extremity Injury Informant: patient Narrative Narrative: 55-year-old female was at work today when she was walking by her desk and tripped over her purse. She fell down onto her left knee. She notes swelling and pain. She notes early bruising. She takes meloxicam at home. She states she does not think that it is broken PFSH PFS Medical History Arthritis Asthma Bilateral headaches Carpal tunnel syndrome Diabetes Environmental allergies Fibromyalgia Hx of gallstones Osteoarthritis Home Medications glimepiride 4 mg PO DAILY 10/28/16 [History Last Taken Unknown] meloxicam 15 mg PO DAILY 10/28/16 [History Last Taken Unknown] metformin 1,000 mg PO BID 10/28/16 [History Last Taken Unknown] losartan 25 mg PO DAILY 01/22/19 [History Last Taken Unknown] pioglitazone 15 mg PO DAILY 01/22/19 [History Last Taken Unknown] sitagliptin [Januvia] 100 mg PO DAILY 10/12/20 [History Last Taken Unknown] Allergy/AdvReac Type Severity Reaction Status Date / Time promethazine [From Phenergan] Allergy Other Verified 10/12/20 15:02 sulfamethoxazole Allergy Vomiting Verified 10/12/20 15:02 [From Bactrim] trimethoprim [From Bactrim] Allergy Vomiting Verified 10/12/20 15:02 Family History (Updated 05/04/17 @ 16:28 by Paula Caal) Other Arthritis Breast cancer Colon cancer Hypertension Kidney disease Surgical History History of hernia repair Social History Smoking Status: Never smoker alcohol intake: never substance use type: does not use what type of physical activity do you participate in: walking frequency: 1-2 times per week ROS ROS ED Constitutional Constitutional ED: Denies chills or weight loss Eyes Eyes: Denies change in vision or diplopia ENT ENT ED: Denies ear pain, rhinorrhea or sore throat Cardiovascular Cardiovascular: Denies chest pain, orthopnea, palpitations or racing heartbeat Respiratory/Chest Respiratory/Chest: Denies cough, dyspnea or orthopnea Gastrointestinal Gastrointestinal: Denies abdominal pain, diarrhea, nausea or vomiting Genitourinary Genitourinary ED: Denies dysuria, hematuria or urinary frequency Musculoskeletal Musculoskeletal: Denies arthralgias or myalgias Integumentary Reports other Details: See history of present illness ; Denies abscess or rash Neurologic Neurologic: Denies headache(s) or weakness Psychiatric Psychiatric: Denies anxiety, depression, suicidal ideation or suicidal thoughts Endocrine Endocrinology: Denies polydipsia, polyphagia or polyuria Allergic/Immunologic Allergic/Immunologic ED: Denies mouth swelling, tongue swelling or urticaria EXAM Physical Exam Const Vital Signs: 10/12/20 15:00 Temperature 97.6 F L Temperature Source Temporal Pulse Rate 89 Respiratory Rate 17 Blood Pressure 156/80 H Blood Pressure Mean 105 Pulse Ox 90 Oxygen Delivery Method Room Air Positive well nourished, well developed and obese General Appearance ED: well developed Nutritional Appearance: obese HEENT Reports normocephalic, head/scalp atraumatic and moist mucous membranes Eyes PERRL and EOMs intact bilaterally Neck no lymphadenopathy, supple and no JVD Resp normal respiratory effort and clear to auscultation bilaterally Cardio regular rate, regular rhythm and no murmurs GI normal to inspection, nondistended, normoactive bowel sounds and non-tender Palpation: soft Back/Spine no CVA tenderness and normal ROM Extremity Extremity Narrative: Patient has mild swelling and tenderness to palpation over the inferior aspect of the anterior left knee. Extensor mechanism is intact. Ligaments appear stable. General Extremety ED: Negative for edema General Extremity: Negative for edema Neuro oriented x3 and CN's II-XII intact bilaterally Sensorium / Orientation: alert Motor Exam: strength 5/5 throughout Psych mental status grossly normal Mood & Affect: Negative for depressed or tearful Skin no rashes or lesions noted and no wounds MDM MDM MDM Narrative Medical decision making narrative: My interpretation of the plain films of the left knee is no acute fracture. Patient will use Vijay wrap and ice at home. She declines pain medication beyond Tylenol. Discharge Plan Triage Chief Complaint: Lower Extremity Injury ED Provider: Zeb Echeverria Dx/Rx/DC Orders Clinical Impression: Contusion of left knee Instructions: ED Contusion, Lower Extremity Prescriptions: No Action meloxicam 15 MG tablet 15 mg PO DAILY RF: 0 metformin 1,000 MG tablet 1,000 mg PO BID RF: 0 glimepiride 4 MG tablet 4 mg PO DAILY RF: 0 pioglitazone 15 MG tablet 15 mg PO DAILY RF: 0 losartan 25 MG tablet 25 mg PO DAILY RF: 0 Januvia 100 mg tablet 100 mg PO DAILY RF: 0 Primary Care Provider: Presley Gonzales Referrals: [facility]IC[facility]] - 1 Week Presley Gonzales MD [Primary Care Provider] - Disposition Disposition: Home, Self Care
== END 2020-10-12 16:59 | disposition home or self-care (01) ==
PROVIDERS: Emergency Provider Emergency Medicine; PCP Family Medicine
DX: S80.02XA Contusion of left knee, initial encounter (principal); W01.0XXA Fall on same level from slipping, tripping and stumbling without subsequent striking against object, initial encounter; Y93.01 Activity, walking, marching and hiking; Y92.9 Unspecified place or not applicable; Y99.0 Civilian activity done for income or pay; M17.12 Unilateral primary osteoarthritis, left knee; E11.9 Type 2 diabetes mellitus without complications; M79.7 Fibromyalgia; Z79.84 Long term (current) use of oral hypoglycemic drugs; Z79.899 Other long term (current) drug therapy
CPT/HCPCS: 73564; 99282

== ENCOUNTER 2021-04-06 18:11 | Outpatient (CLI) | payer OTHER, SELFPAY ==
[2021-04-06 18:15] VITALS: BP 161/87; PULSE 73; RESP 16; TEMP 36.8; O2SAT 99; BMI 45.1
[2021-04-06] MEDS: 0.9% Saline Lock 10 ML Syringe IV (18:41)
[2021-04-06 19:13] VITALS: BP 139/60; PULSE 58; RESP 16; TEMP 35.5; O2SAT 96
[2021-04-06 20:00] VITALS: BP 150/85; PULSE 62; RESP 16; TEMP 36.8; O2SAT 99
== END 2021-04-06 23:59 | disposition home or self-care (01) ==
LOC: MS3OUT 18:12 → MS3 18:12
PROVIDERS: PCP Family Medicine; Visit Provider Nurse Practitioner Adult Health
DX: Z23 Encounter for immunization (principal); U07.1 COVID-19
CPT/HCPCS: J7050; M0243; A4216; Q0244

== ENCOUNTER 2021-06-22 10:34 | Outpatient (CLI) | payer OTHER, SELFPAY ==
[2021-06-22 12:28] LABS: Erythrocyte Sedimentation Rate 75 mm/hr (0-30)
[2021-06-22 12:54] LABS: Anion Gap 6 (5-15); BUN 11 mg/dL (7-18); BUN/Creat Ratio 14.5 RATIO (10-20); Calcium,Total 9.4 mg/dL (8.5-10.1); Chloride 104 mmol/L (98-107); Cholesterol 216 mg/dL (200); Creatinine, Serum 0.76 mg/dL (0.55-1.02); EST Glomerular Filtration Rate 83 mL/min (>60); Est Glom Filt Rate - Afr Amer 101 mL/min (>60); Glucose 113 mg/dL (74-106); High Density Lipoprotein 54 mg/dL; Rheumatoid Factor < 10.0 IU/mL (<15); Sodium Level 136 mmol/L (136-145); Thyroid Stim Hormone (TSH) 0.89 uIU/mL (0.358-3.74); Triglycerides 75 mg/dL; Very Low Density Lipoprotein 15 mg/dL (5-40)
[2021-06-22 12:56] LABS: Vitamin D,25 Hydroxy 32.6 ng/mL
[2021-06-23 18:46] LABS: ANTINUCLEAR ANTIBODIES DIRECT Negative (Negative)
== END 2021-06-22 23:59 | disposition home or self-care (01) ==
LOC: MFPLAB 10:40
PROVIDERS: PCP Family Medicine; Referring Provider Family Medicine; Visit Provider Family Medicine
DX: M25.50 Pain in unspecified joint (principal); E11.29 Type 2 diabetes mellitus with other diabetic kidney complication; E55.9 Vitamin D deficiency, unspecified
CPT/HCPCS: 36415; 80048; 80061; 82306; 84443; 85652; 86038; 86140; 86431

== ENCOUNTER 2021-07-08 10:03 | Outpatient (CLI) | payer OTHER, SELFPAY ==
[2021-07-14 11:13] LABS: HPV APTIMA, High Risk Negative (Negative)
== END 2021-07-08 23:59 | disposition home or self-care (01) ==
LOC: LABSPEC 10:07
PROVIDERS: PCP Family Medicine; Referring Provider Nurse Practitioner Family; Visit Provider Nurse Practitioner Family
DX: Z12.4 Encounter for screening for malignant neoplasm of cervix (principal)
CPT/HCPCS: 87624; 88175; G0145

== ENCOUNTER 2021-07-14 11:53 | Outpatient (CLI) | payer OTHER, SELFPAY ==
--- NOTE | 2021-07-14 11:55 | BI_ITS ---
MAMMOGRAPHY - BILATERAL SCREENING 3-D TOMOSYNTHESIS REASON FOR EXAM: Female, 56 years old. screening PERTINENT HISTORY: No significant family history. TECHNIQUE: 2-D mammograms and 3-D Tomosynthesis of the breast (s) were performed. CAD was performed. COMPARISON: 07/02/2018 FINDINGS: The breast composition is composed of scattered fibroglandular density. Scattered benign calcifications are seen. No dense spiculated masses or suspicious microcalcifications are identified. No architectural distortion is identified. There is no skin thickening or retraction. There has been no significant change since the prior study. BI/SCRN MAMM (CAD)W/LINA BILAT IMPRESSION: No mammographic signs of malignancy. Routine yearly mammograms recommended. ASSESSMENT CATEGORY: BIRADS Category 1: Negative. A letter regarding these results will be sent to the patient by the facility within 30 days. FOLLOW UP RECOMMENDATION: Yearly follow up mammogram recommended. (A) Approximately 10% of breast cancers are not detected by mammography. A normal mammogram should not delay biopsy of a clinically suspicious abnormality. Electronically Signed: Gino Morfin MD at 14:13 EDT ,
== END 2021-07-14 23:59 | disposition home or self-care (01) ==
LOC: OPBI 11:53
PROVIDERS: PCP Family Medicine; Visit Provider Nurse Practitioner Family
DX: Z12.31 Encounter for screening mammogram for malignant neoplasm of breast (principal)
CPT/HCPCS: 77063; 77067

== ENCOUNTER → 2022-03-24 | Outpatient (CLI) | payer OTHER, SELFPAY ==
[2022-03-24 10:12] LABS: Hematocrit 45.7 % (37-47); Hemoglobin 14.3 g/dL (12.0-15.0); Mean Corp Hgb Conc 31.3 g/dL (32-36); Mean Corpuscular Hgb 25.3 pg (27.0-32.0); Mean Corpuscular Volume 80.7 fL (81-99); Mean Platelet Vol. 9.9 fl (6.2-12.0); Platelet Count 361 K/mm3 (150-450); RBC Distribution Width CV 15.2 % (11.6-14.6); RBC Distribution Width SD 44.6 fl (35.1-43.9); Red Blood Count 5.66 M/mm3 (4.2-5.4); White Blood Count 8.1 K/mm3 (4.4-11.0)
[2022-03-24 10:26] LABS: Vitamin B12 407 pg/mL (211-911); Vitamin D,25 Hydroxy 31.5 ng/mL
[2022-03-24 10:35] LABS: Erythrocyte Sedimentation Rate 58 mm/hr (0-30)
[2022-03-24 10:43] LABS: ALB/GLOB Ratio 0.8 RATIO (0.9-2.4); AST(SGOT) 15 U/L (15-37); Alanine Aminotransfer ALT/SGPT 24 U/L (13-56); Albumin, Serum 3.3 g/dL (3.2-5.0); Alkaline Phosphatase 72 U/L (45-117); Anion Gap 5 (5-15); BUN 18 mg/dL (7-18); BUN/Creat Ratio 24.8 RATIO (10-20); Chloride 102 mmol/L (98-107); Creatinine, Serum 0.73 mg/dL (0.55-1.02); EST Glomerular Filtration Rate 87 mL/min (>60); Est Glom Filt Rate - Afr Amer 106 mL/min (>60); Globulin 4.1 g/dL (2.2-4.2); Glucose 101 mg/dL (74-106); Potassium 4.6 mmol/L (3.5-5.1); Protein, Total 7.4 g/dL (6.4-8.2); Sodium Level 136 mmol/L (136-145); Thyroid Stim Hormone (TSH) 1.02 uIU/mL (0.358-3.74)
[2022-03-25 17:06] LABS: ANTINUCLEAR ANTIBODIES DIRECT Negative (Negative)
== END | disposition home or self-care (01) ==
LOC: MFPLAB 08:50
PROVIDERS: PCP Family Medicine; Referring Provider Family Medicine; Visit Provider Family Medicine
DX: M79.7 Fibromyalgia (principal); E55.9 Vitamin D deficiency, unspecified
CPT/HCPCS: 36415; 80053; 82306; 82607; 84443; 85027; 85652; 86038; 86140

== ENCOUNTER → 2022-08-31 | Outpatient (CLI) | payer OTHER, SELFPAY ==
[2022-08-31 10:54] LABS: ALB/GLOB Ratio 0.7 RATIO (0.9-2.4); AST(SGOT) 16 U/L (15-37); Alanine Aminotransfer ALT/SGPT 26 U/L (13-56); Albumin, Serum 3.3 g/dL (3.2-5.0); Alkaline Phosphatase 89 U/L (45-117); Anion Gap 6 (5-15); BUN 10 mg/dL (7-18); BUN/Creat Ratio 14.6 RATIO (10-20); Calcium,Total 9.3 mg/dL (8.5-10.1); Chloride 103 mmol/L (98-107); Cholesterol 207 mg/dL (200); Creatinine, Serum 0.68 mg/dL (0.55-1.02); EST Glomerular Filtration Rate 93 mL/min (>60); Est Glom Filt Rate - Afr Amer 113 mL/min (>60); Globulin 4.6 g/dL (2.2-4.2); Glucose 170 mg/dL (74-106); High Density Lipoprotein 50 mg/dL; Potassium 4.3 mmol/L (3.5-5.1); Protein, Total 7.9 g/dL (6.4-8.2); Sodium Level 136 mmol/L (136-145); Triglycerides 101 mg/dL; Very Low Density Lipoprotein 20 mg/dL (5-40)
== END | disposition home or self-care (01) ==
LOC: MFPLAB 08:35
PROVIDERS: PCP Family Medicine; Visit Provider Family Medicine
DX: E11.29 Type 2 diabetes mellitus with other diabetic kidney complication (principal)
CPT/HCPCS: 36415; 80053; 80061

== ENCOUNTER → 2022-09-08 | Outpatient (CLI) | payer OTHER, SELFPAY ==
--- NOTE | 2022-09-08 07:37 | BI_ITS ---
MAMMOGRAPHY - BILATERAL SCREENING REASON FOR EXAM: Female, 57 years old. Routine annual screening examination. PERTINENT HISTORY: Mother with breast cancer. TECHNIQUE: Digital bilateral breast lina (3D mammographic acquisition) in the CC and MLO projections. 2-D mediolateral oblique (MLO) and craniocaudad (CC) views of both breasts were obtained. CAD: Full Field Digital Mammography with Computer Added Detection was performed. COMPARISON: Comparison is made with prior study dated July 14, 2021 and July 02, 2018. FINDINGS: Breast Composition: There are scattered areas of fibroglandular density. There are no dominant masses or suspicious calcifications. No other significant abnormalities are identified. There has been no significant change since the prior study. BI/SCRN MAMM (CAD)W/LINA BILAT IMPRESSION: Stable bilateral screening mammogram. Yearly follow-up mammogram recommended. (A) ASSESSMENT CATEGORY: BIRADS Category 1: Negative. A letter regarding these results will be sent to the patient by the facility within 30 days. Approximately 10% of breast cancers are not detected by mammography. A normal mammogram should not delay biopsy of a clinically suspicious abnormality. [id number] Electronically Signed: Rik Shaw MD at 8:56 EDT ,
== END | disposition home or self-care (01) ==
LOC: OPBI 07:34
PROVIDERS: PCP Family Medicine; Referring Provider Family Medicine; Visit Provider Family Medicine
DX: Z12.31 Encounter for screening mammogram for malignant neoplasm of breast (principal); Z80.3 Family history of malignant neoplasm of breast
CPT/HCPCS: 77063; 77067

== ENCOUNTER → 2022-11-18 | Outpatient (CLI) | payer OTHER, SELFPAY ==
--- NOTE | 2022-11-18 10:31 | RAD_ITS ---
STUDY: X-RAY CHEST REASON FOR EXAM: Female, 57 years old. Shortness of breath. TECHNIQUE: Frontal and lateral views of the chest. COMPARISON: None. FINDINGS: The lungs are clear and expanded. There is no demonstrated pleural abnormality. Normal size heart. Normal mediastinum and adonis. Normal visualized pulmonary arteries. Normal visualized aortic arch and descending thoracic aorta. Normal visualized thoracic spine. Normal visualized ribs, clavicles, and shoulders. No abnormality of the visualized soft tissue structures of the upper abdomen. RAD/Chest PA and Lateral IMPRESSION: No active or acute cardiopulmonary disease. Electronically Signed: Ronny Elliott MD at 11:45 EDT ,
== END | disposition home or self-care (01) ==
LOC: MTRAD 10:25
PROVIDERS: PCP Family Medicine; Referring Provider Internal Medicine Pulmonary Disease; Visit Provider Internal Medicine Pulmonary Disease
DX: R06.02 Shortness of breath (principal)
CPT/HCPCS: 71046

== ENCOUNTER → 2022-11-29 | Outpatient (CLI) | payer OTHER, SELFPAY ==
--- NOTE | 2022-11-29 10:58 | ECHOD_ITS ---
Reason For Study: SOB Procedure This was a 2D Doppler, Color Flow transthoracic echocardiogram. The study was technically difficult. Due to body habitus. Exam performed in department. Left Ventricle Normal LV size. Left ventricular systolic function is normal. The estimated ejection fraction is 60 %. Stage 1 diastolic dysfunction. No regional wall motion abnormalities noted. Right Ventricle Normal RV size. Normal systolic function. Atria Normal left atrium. Normal right atrium. Mitral Valve Normal mitral valve. Tricuspid Valve Normal tricuspid valve. Unable to estimate RV systolic pressure due to inadequate jet, pulmonary artery pressure probably normal. Aortic Valve The aortic valve is not well visualized in the short axis view. Pulmonic Valve The pulmonic valve is not well visualized. Great Vessels Normal aortic root. The pulmonary artery is normal size. Normal inferior vena cava. Pericardium/Pleural No pericardial effusion. MMode/2D Measurements & Calculations LVIDd: 4.3 cm IVSd: 0.93 cm Ao root diam: 2.6 cm LVIDs: 2.7 cm LVPWd: 0.93 cm RVDd: 2.7 cm FS: 36.6 % LAV(MOD-bp): 45.6 ml LVAd ap4: 31.7 cm2 LVAd ap2: 23.4 cm2 LAV(MOD-bp) Indexed: 19.7 ml/m2 LVLd ap4: 8.3 cm LVLd ap2: 7.7 cm LAV(MOD-sp2): 41.4 ml EDV(MOD-sp4): 104.3 ml EDV(MOD-sp2): 60.0 ml LAV(MOD-sp4): 41.8 ml EDV(sp4-el): 103.1 ml EDV(sp2-el): 60.1 ml LVAs ap4: 18.1 cm2 LVAs ap2: 13.4 cm2 LVLs ap4: 7.0 cm LVLs ap2: 6.8 cm ESV(MOD-sp4): 42.6 ml ESV(MOD-sp2): 24.0 ml ESV(sp4-el): 39.6 ml ESV(sp2-el): 22.2 ml EF(MOD-sp4): 59.1 % EF(MOD-sp2): 60.1 % EF(sp4-el): 61.6 % SV(MOD-sp4): 61.7 ml SV(MOD-sp2): 36.1 ml SV(sp4-el): 63.5 ml LA dimension(2D): 3.8 cm LA A4 area: 14.8 cm2 RA A4 area: 12.0 cm2 Time Measurements MV dec time: 0.22 sec Doppler Measurements & Calculations MV E max jayy: 69.7 cm/sec Lat Peak E' Jayy: 9.8 cm/sec Med Peak E' Jayy: 11.1 cm/sec MV A max jayy: 86.9 cm/sec E/E' lat: 7.1 E/E' med: 6.3 MV E/A: 0.80 MV V2 max: 95.8 cm/sec Ao V2 max: 131.2 cm/sec LV V1 max: 121.9 cm/sec MV max P.7 mmHg Ao max P.9 mmHg LV V1 max P.9 mmHg MV V2 mean: 55.6 cm/sec Ao V2 mean: 93.8 cm/sec LV V1 mean P.3 mmHg MV mean P.4 mmHg Ao mean P.9 mmHg LV V1 mean: 86.4 cm/sec MV V2 VTI: 21.8 cm Ao V2 VTI: 26.9 cm LV V1 VTI: 27.4 cm AV (velocity ratio): 1.0 PA V2 max: 101.2 cm/sec PA V2 mean: 68.9 cm/sec ECHO/Echo Complete Interpretation Summary Normal LV size. Left ventricular systolic function is normal. The estimated ejection fraction is 60 %. Stage 1 diastolic dysfunction. Unable to estimate RV systolic pressure due to inadequate jet, pulmonary artery pressure probably normal. Ordering Physician: Chandana Pastrana V Referring Physician: Abdias Gonzales Performed By: Antonia Guerra, BRITTNI, RVT
== END | disposition home or self-care (01) ==
LOC: CVS 10:55
PROVIDERS: PCP Family Medicine; Referring Provider Internal Medicine Pulmonary Disease; Visit Provider Internal Medicine Pulmonary Disease
DX: R06.00 Dyspnea, unspecified (principal)
CPT/HCPCS: 93306

== ENCOUNTER 2023-06-22 07:40 | Emergency (ER) | payer OTHER, SELFPAY ==
[2023-06-22 07:41] VITALS: BP 178/76; PULSE 86; RESP 18; TEMP 36.9; O2SAT 99; BMI 47.4
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
[2023-06-22] MEDS: Morphine 4 MG/ML Syringe IV (08:42)
[2023-06-22] MEDS: Ondansetron 4 MG/2 ML Vial IV (08:42)
[2023-06-22 09:29] VITALS: BP 134/76; PULSE 68; RESP 15; TEMP 36.4; O2SAT 98
== END 2023-06-22 09:33 | disposition home or self-care (01) ==
PROVIDERS: Emergency Provider Emergency Medicine; PCP Family Medicine; Visit Provider Emergency Medicine
DX: S50.02XA Contusion of left elbow, initial encounter (principal); S50.12XA Contusion of left forearm, initial encounter; S20.20XA Contusion of thorax, unspecified, initial encounter; E66.9 Obesity, unspecified; V43.52XA Car driver injured in collision with other type car in traffic accident, initial encounter; Z86.16 Personal history of COVID-19
CPT/HCPCS: 71045; 73080; 73090; 96374; 96375; 99283; A4216; J2405

== ENCOUNTER → 2023-09-14 | Outpatient (CLI) | payer OTHER, SELFPAY ==
[2023-09-14 09:57] LABS: Hematocrit 47.7 % (37-47); Hemoglobin 14.6 g/dL (12.0-15.0); Mean Corp Hgb Conc 30.6 g/dL (32-36); Mean Corpuscular Volume 81.8 fL (81-99); Mean Platelet Vol. 10.2 fl (6.2-12.0); Platelet Count 327 K/mm3 (150-450); RBC Distribution Width CV 14.9 % (11.6-14.6); RBC Distribution Width SD 44.2 fl (35.1-43.9); Red Blood Count 5.83 M/mm3 (4.2-5.4); White Blood Count 8.4 K/mm3 (4.4-11.0)
[2023-09-14 10:23] LABS: Vitamin B12 433 pg/mL (211-911)
[2023-09-14 10:59] LABS: ALB/GLOB Ratio 0.6 RATIO (0.9-2.4); AST(SGOT) 42 U/L (15-37); Alanine Aminotransfer ALT/SGPT 51 U/L (13-56); Albumin, Serum 3.1 g/dL (3.2-5.0); Alkaline Phosphatase 86 U/L (45-117); Anion Gap 10 (5-15); BUN 11 mg/dL (7-18); BUN/Creat Ratio 19.2 RATIO (10-20); Calcium,Total 9.3 mg/dL (8.5-10.1); Chloride 100 mmol/L (98-107); Cholesterol 177 mg/dL (200); Creatinine, Serum 0.57 mg/dL (0.55-1.02); EST Glomerular Filtration Rate 114 mL/min (>60); Est Glom Filt Rate - Afr Amer 138 mL/min (>60); Globulin 4.8 g/dL (2.2-4.2); Glucose 156 mg/dL (74-106); High Density Lipoprotein 48 mg/dL; Potassium 4.1 mmol/L (3.5-5.1); Protein, Total 7.9 g/dL (6.4-8.2); Sodium Level 136 mmol/L (136-145); Thyroid Stim Hormone (TSH) 1.18 uIU/mL (0.358-3.74); Triglycerides 89 mg/dL; Very Low Density Lipoprotein 18 mg/dL (5-40)
== END | disposition home or self-care (01) ==
LOC: MFPLAB 08:32
PROVIDERS: PCP Family Medicine; Visit Provider Family Medicine
DX: E11.29 Type 2 diabetes mellitus with other diabetic kidney complication (principal); S40.029A Contusion of unspecified upper arm, initial encounter; E55.9 Vitamin D deficiency, unspecified
CPT/HCPCS: 36415; 80053; 80061; 82306; 82607; 84443; 85027

== ENCOUNTER → 2023-09-27 | Outpatient (CLI) | payer OTHER, SELFPAY ==
--- NOTE | 2023-09-27 15:25 | BI_ITS ---
MAMMOGRAPHY - BILATERAL SCREENING 3-D TOMOSYNTHESIS REASON FOR EXAM: Female, 58 years old. Encounter for screening mammogram for malignant neoplasm of breas PERTINENT HISTORY: No significant family history. TECHNIQUE: 2-D mammograms and 3-D Tomosynthesis of the breast (s) were performed. CAD was performed. COMPARISON: 09/08/2022 FINDINGS: The breast composition is composed of scattered fibroglandular density. Scattered benign calcifications are seen. No dominant mass right breast. 2 small masses in the retroareolar left breast at posterior depth and focal compression views are recommended for further evaluation. No suspicious calcifications.. No architectural distortion is identified. There is no skin thickening or retraction. BI/SCRN MAMM (CAD)W/LINA BILAT IMPRESSION: Further imaging evaluation is recommended. ASSESSMENT CATEGORY: BIRADS Category 0: Incomplete. Need additional imaging evaluation as above. A letter regarding these results will be sent to the patient by the facility within 30 days. FOLLOW UP RECOMMENDATION: Additional imaging recommended as above. (E) Approximately 10% of breast cancers are not detected by mammography. A normal mammogram should not delay biopsy of a clinically suspicious abnormality. Electronically Signed: Gino Morfin MD at 19:06 EDT ,
== END | disposition home or self-care (01) ==
LOC: OPBI 15:24
PROVIDERS: PCP Family Medicine; Referring Provider Family Medicine; Visit Provider Family Medicine
DX: Z12.31 Encounter for screening mammogram for malignant neoplasm of breast (principal)
CPT/HCPCS: 77063; 77067

== ENCOUNTER → 2023-10-03 | Outpatient (CLI) | payer OTHER, SELFPAY ==
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
--- NOTE | 2023-10-03 09:02 | BI_ITS ---
MAMMOGRAPHY - UNILATERAL DIAGNOSTIC: LEFT BREAST REASON FOR EXAM: Female, 58 years old. Abnormal screening mammogram. PERTINENT HISTORY: Non-contributory. TECHNIQUE: Compression spot views of the left breast were obtained. CAD: Full Field Digital Mammography with Computer Added Detection was performed. COMPARISON: Comparison is made with prior study dated September 27, 2023. FINDINGS: Breast Composition: There are scattered areas of fibroglandular density. The questionable small nodular densities in the slightly upper lateral aspect of the breast where visualized. These most likely represent small lymph nodes. Correlation with ultrasound recommended. No other significant abnormalities are identified. BI/DIAG MAMM W/CAD, UNILAT IMPRESSION: Persistent visualization of the small nodular densities as described. Correlation with ultrasound is recommended. ASSESSMENT CATEGORY: BIRADS Category 0: Incomplete. Need additional imaging evaluation. A letter regarding these results will be sent to the patient by the facility within 30 days. Approximately 10% of breast cancers are not detected by mammography. A normal mammogram should not delay biopsy of a clinically suspicious abnormality. Electronically Signed: Rik Shaw MD at 11:00 EDT ,
== END | disposition home or self-care (01) ==
PROVIDERS: PCP Family Medicine; Referring Provider Family Medicine; Visit Provider Family Medicine
DX: R92.8 Other abnormal and inconclusive findings on diagnostic imaging of breast (principal)
CPT/HCPCS: 76642; 77065

== ENCOUNTER → 2024-06-14 | Outpatient (CLI) | payer OTHER, SELFPAY ==
--- NOTE | 2024-06-14 15:02 | US_ITS ---
PROCEDURE: BREAST LIMITED UNILATERAL 06/14/2024 REASON FOR EXAM: 59-year-old female presents for short interval follow-up of the left breast masses seen on the examination of 10/03/2023. Family history of breast cancer in her mother at 48. COMPARISON: 10/03/2023 TECHNIQUE: Targeted left breast ultrasound. FINDINGS: LEFT: Ultrasound targeted to the upper inner left breast. Ultrasound performed of the left breast demonstrates a cyst at 10 o'clock 8 cm from the nipple measuring 0.5 x 0.5 x 0.4 cm and another cyst at 11 o'clock 13 cm from the nipple measuring 1.4 x 1.4 x 1.0 cm, these have not significantly changed compared to prior. However, the other cyst at 11-12 o'clock 12 cm from the nipple has resolved. Also, the previously visualized hyperechoic areas at 12 o'clock 13 cm from the nipple and 10 o'clock 15 cm from the nipple have not significantly changed and appear as normal glandular tissue on today's examination. Otherwise, there are no suspicious findings in the left breast. US/Breast Limited Unilateral IMPRESSION: There is no evidence of malignancy in the left breast. BI-RADS 2: BENIGN. RECOMMEND ANNUAL MAMMOGRAPHIC SCREENING. The next screening examination is due in September 2024. Reading Location: [id number]
== END | disposition home or self-care (01) ==
PROVIDERS: PCP Family Medicine; Referring Provider Family Medicine; Visit Provider Family Medicine
DX: R92.8 Other abnormal and inconclusive findings on diagnostic imaging of breast (principal)
CPT/HCPCS: 76642

== ENCOUNTER → 2024-09-25 | Outpatient (CLI) | payer OTHER, SELFPAY ==
[2024-09-25 11:02] LABS: Hematocrit 48.7 % (37-47); Hemoglobin 15.4 g/dL (12.0-15.0); Mean Corp Hgb Conc 31.6 g/dL (32-36); Mean Corpuscular Volume 81.2 fL (81-99); Mean Platelet Vol. 10.4 fl (6.2-12.0); Platelet Count 301 K/mm3 (150-450); RBC Distribution Width CV 14.7 % (11.6-14.6); RBC Distribution Width SD 42.8 fl (35.1-43.9); Red Blood Count 6.00 M/mm3 (4.2-5.4); White Blood Count 8.5 K/mm3 (4.4-11.0)
[2024-09-25 13:42] LABS: AST(SGOT) 26 U/L (<=31); Alanine Aminotransfer ALT/SGPT 27 U/L (<=34); Albumin, Serum 3.8 g/dL (3.4-4.8); Alkaline Phosphatase 84 U/L (35-104); Anion Gap 11 (5-15); BUN 9 mg/dL (4-19); BUN/Creat Ratio 11.9 RATIO (10-20); Calcium,Total 9.4 mg/dL (7.6-11.0); Carbon Dioxide 25.7 mmol/L (21.0-32.0); Chloride 102 mmol/L (98-108); Cholesterol 197 mg/dL (<=200); Globulin 3.8 g/dL (2.2-4.2); Glucose 144 mg/dL (70-99); Low Density Lipoprotein Calc. 128 mg/dL; Potassium 4.6 mmol/L (3.3-5.1); Triglycerides 95 mg/dL; Very Low Density Lipoprotein 19 mg/dL (5-40); Vitamin B12 411 pg/mL (180-914); Vitamin D,25 Hydroxy 29.6 ng/mL (30-100); cholesterol:hdl ratio screen 3.96
== END | disposition home or self-care (01) ==
PROVIDERS: PCP Family Medicine; Referring Provider Family Medicine; Visit Provider Family Medicine
DX: R79.89 Other specified abnormal findings of blood chemistry (principal); E11.29 Type 2 diabetes mellitus with other diabetic kidney complication; M79.7 Fibromyalgia
CPT/HCPCS: 36415; 80053; 80061; 82306; 82607; 84443; 85027

== ENCOUNTER → 2024-12-23 | Outpatient (CLI) | payer OTHER, SELFPAY ==
[2024-12-23 17:52] LABS: Hematocrit 48.0 % (37-47); Hemoglobin 15.2 g/dL (12.0-15.0); Immature Granulocytes Count 0.020 X10^3/uL (0.0-0.0); Mean Corp Hgb Conc 31.7 g/dL (32-36); Mean Corpuscular Volume 78.8 fL (81-99); Mean Platelet Vol. 10.0 fl (6.2-12.0); NRBC Flagged by Analyzer 0 % (0-5); Platelet Count 374 K/mm3 (150-450); RBC Distribution Width CV 14.6 % (11.6-14.6); RBC Distribution Width SD 41.8 fl (35.1-43.9); Red Blood Count 6.09 M/mm3 (4.2-5.4); White Blood Count 9.0 K/mm3 (4.4-11.0)
== END | disposition home or self-care (01) ==
LOC: MFPLAB 16:41
PROVIDERS: PCP Family Medicine; Referring Provider Family Medicine; Visit Provider Family Medicine
DX: R71.8 Other abnormality of red blood cells (principal)
CPT/HCPCS: 36415; 82668; 85025